=== PATIENT | male | born 1955 | race American Indian/Alaskan Native ===

== ENCOUNTER 2020-06-27 12:04 | Observation (INO) | payer OTHER ==
--- NOTE | 2020-06-27 12:33 | Emergency Department Report ---
ED Neuro Deficit HPI - General Chief Complaint: Neuro Symptoms/Deficit Stated Complaint: LT SIDE/FOOT FINGER/NUMB Time Seen by Provider: 06/27/20 12:28 Source: patient Mode of arrival: Ambulatory Limitations: No Limitations - History of Present Illness Initial Comments: 64-year-old male, history of hypertension, presents to ED for evaluation. Patient states last night around 8 or 9 PM, he experienced numbness and some weakness to his left arm and leg. Patient states EMS was called, but he declined transport to the ER due to concerns for Covid. Patient states his symptoms resolved last night. However, he decided to follow-up with his PCP this morning, who recommended that patient come to the ER for evaluation. Patient denies any current numbness or weakness in his extremities, denies any facial droop, denies any trouble with speech. Patient states his only symptoms this morning has been some slight dizziness. -: Last night Location: left arm, left leg Place: home Severity: mild Quality: weak, numb, other (Resolved) Improves With: none Worsens With: none On Anticoagulants: No Associated Symptoms: denies: chest pain, fever/chills, headaches, nausea/vomiting, shortness of breath Treatments Prior to Arrival: none - Related Data Allergies/Adverse Reactions: Allergies Allergy/AdvReac Type Severity Reaction Status Date / Time No Known Allergies Allergy Unverified 06/27/20 12:11 ED Review of Systems ROS: Stated complaint: LT SIDE/FOOT FINGER/NUMB Other details as noted in HPI Comment: All other systems reviewed and negative Constitutional: denies: fever Respiratory: denies: shortness of breath Cardiovascular: denies: chest pain Gastrointestinal: denies: vomiting Neurological: weakness, numbness, vertigo. denies: headache ED Past Medical Hx - Past Medical History Previous Medical History?: Yes Hx Hypertension: Yes Additional medical history: Glaucoma. BPH - Surgical History Past Surgical History?: No ED Neuro Physical Exam - General Limitations: No Limitations General appearance: alert, in no apparent distress Suspected Stroke: No - Head Head exam: Present: atraumatic, normocephalic - Eye Eye exam: Present: normal appearance, EOMI - ENT ENT exam: Present: mucous membranes moist - Neck Neck exam: Present: normal inspection - Respiratory Respiratory exam: Present: normal lung sounds bilaterally. Absent: respiratory distress - Cardiovascular Cardiovascular Exam: Present: regular rate, normal rhythm - GI/Abdominal GI/Abdominal exam: Present: soft. Absent: distended, tenderness - Extremities Exam Extremities exam: Present: normal inspection - Neurological Exam Neurological exam: Present: alert, oriented X3 - NIHSS Assessment Interval: Baseline 1a. Level of Consciousness: alert/keenly responsive 1b. LOC Questions: answers both correctly 1c. LOC Commands: performs tasks correctly 2. Best Gaze: normal 3. Visual: no visual loss 4. Facial Palsy: normal symmetrical movement 5b. Motor Arm Right: no drift 5a. Motor Arm Left: no drift 6a. Motor Leg Left: no drift 6b. Motor Leg Right: no drift 7. Limb Ataxia: absent 8. Sensory: normal 9. Best Language: no aphasia 10. Dysarthria: normal 11. Extinction/Inattention: no abnormality Total Score: 0 Stroke Severity: No Stroke Symptoms - Psychiatric Psychiatric exam: Present: normal affect, normal mood - Skin Skin exam: Present: warm, dry, intact, normal color ED Course Vital Signs 06/27/20 06/27/20 06/27/20 12:25 12:30 13:00 Temperature 97.8 F Pulse Rate 62 Respiratory 18 Rate Blood Pressure 159/83 159/83 139/77 Blood Pressure 159/83 [Left] O2 Sat by Pulse 98 100 Oximetry 06/27/20 06/27/20 06/27/20 13:30 14:08 14:30 Temperature Pulse Rate 60 59 L 57 L Respiratory 18 12 18 Rate Blood Pressure 135/85 149/98 149/98 Blood Pressure [Left] O2 Sat by Pulse 98 100 99 Oximetry 06/27/20 15:21 Temperature Pulse Rate Respiratory Rate Blood Pressure 149/98 Blood Pressure [Left] O2 Sat by Pulse 100 Oximetry - Lab Data Result diagrams: 06/27/20 12:44 06/27/20 12:44 Lab Results 06/27/20 06/27/20 06/27/20 Range/Units 12:44 12:44 12:44 WBC 6.3 (4.5-11.0) K/mm3 RBC 4.76 (3.65-5.03) M/mm3 Hgb 13.3 (11.8-15.2) gm/dl Hct 40.6 (35.5-45.6) % MCV 85 (84-94) fl MCH 28 (28-32) pg MCHC 33 (32-34) % RDW 12.6 L (13.2-15.2) % Plt Count 279 (140-440) K/mm3 Lymph % (Auto) 38.1 H (13.4-35.0) % [place] % (Auto) 8.5 H (0.0-7.3) % Eos % (Auto) 2.4 (0.0-4.3) % Baso % (Auto) 0.5 (0.0-1.8) % Lymph # (Auto) 2.4 (1.2-5.4) K/mm3 [place] # (Auto) 0.5 (0.0-0.8) K/mm3 Eos # (Auto) 0.2 (0.0-0.4) K/mm3 Baso # (Auto) 0.0 (0.0-0.1) K/mm3 Seg Neutrophils % 50.5 (40.0-70.0) % Seg Neutrophils # 3.2 (1.8-7.7) K/mm3 PT 13.3 (12.2-14.9) Sec. INR 0.99 (0.87-1.13) APTT 28.6 (24.2-36.6) Sec. Thrombin Time 16.5 (15.1-19.6) Sec. Sodium 138 (137-145) mmol/L Potassium 4.2 (3.6-5.0) mmol/L Chloride 100.8 (98-107) mmol/L Carbon Dioxide 23 (22-30) mmol/L Anion Gap 18 mmol/L BUN 14 (9-20) mg/dL Creatinine 1.1 (0.8-1.3) mg/dL Estimated GFR > 60 ml/min BUN/Creatinine Ratio 13 % Glucose 139 H (75-100) mg/dL Calcium 9.4 (8.4-10.2) mg/dL Total Bilirubin 0.30 (0.1-1.2) mg/dL AST 18 (5-40) units/L ALT 29 (7-56) units/L Alkaline Phosphatase 50 (35-129) units/L Troponin T < 0.010 (0.00-0.029) ng/mL Total Protein 7.2 (6.3-8.2) g/dL Albumin 4.4 (3.9-5) g/dL Albumin/Globulin Ratio 1.6 % - Radiology Data Radiology results: report reviewed, image reviewed - Medical Decision Making 64-year-old male presents to ED with TIA. Patient reports left-sided numbness and weakness last night, which lasted for approximately 5 minutes. Patient decided not to come to the emergency room at that time. Patient instead try to follow-up with his PCP this morning, however upon arriving to the office he was advised to come to the ER for evaluation. Patient reports his left-sided symptoms have resolved, only reports some mild dizziness. Patient was seen and evaluated by the teleneurologist. NIH is 0. CT head, CTA brain and neck were all negative for any acute bleed or large vessel occlusion. Patient has been given aspirin here in the ED. He will be admitted by hospitalist, Dr Quintero, for further management. - Differential Diagnosis TIA, CVA Critical care attestation.: If time is entered above; I have spent that time in minutes in the direct care of this critically ill patient, excluding procedure time. ED Disposition Clinical Impression: TIA (transient ischemic attack) Disposition: OP ADMIT IP TO THIS HOSP Is pt being admited?: Yes Condition: Stable Time of Disposition: 14:49
[2020-06-27 12:59] LABS: Basophils % (Auto) 0.5 % (0.0-1.8); Eosinophils # (Auto) 0.2 K/mm3 (0.0-0.4); Eosinophils % (Auto) 2.4 % (0.0-4.3); Hematocrit 40.6 % (35.5-45.6); Hemoglobin 13.3 gm/dl (11.8-15.2); Lymphocytes # (Auto) 2.4 K/mm3 (1.2-5.4); Lymphocytes % (Auto) 38.1 % (13.4-35.0); Mean Corpuscular HGB Conc 33 % (32-34); Mean Corpuscular Volume 85 fl (84-94); Monocytes # (Auto) 0.5 K/mm3 (0.0-0.8); Monocytes % (Auto) 8.5 % (0.0-7.3); Platelet Count 279 K/mm3 (140-440); Red Blood Count 4.76 M/mm3 (3.65-5.03); Red Cell Distribution Width 12.6 % (13.2-15.2)
[2020-06-27 13:12] LABS: INR 0.99 (0.87-1.13)
[2020-06-27 13:13] LABS: Partial Thromboplastin Time 28.6 Sec. (24.2-36.6); Thrombin Time 16.5 Sec. (15.1-19.6)
[2020-06-27 13:23] LABS: Alanine Aminotransferase 29 units/L (7-56); Albumin 4.4 g/dL (3.9-5); BUN/Creatinine Ratio 13; Blood Urea Nitrogen 14 mg/dL (9-20); Calcium 9.4 mg/dL (8.4-10.2); Hemolysis Index 12
--- NOTE | 2020-06-27 13:31 | Emergency Department Report ---
ED Neuro Deficit HPI - General Chief Complaint: Neuro Symptoms/Deficit Stated Complaint: LT SIDE/FOOT FINGER/NUMB Time Seen by Provider: 06/27/20 12:28 Source: patient Mode of arrival: Ambulatory Limitations: No Limitations - History of Present Illness Initial Comments: [facility] Consult Services Stat Consult Date of Service: 06/27/2020 12:30:53 Impression: Transient Ischemic Attack Comments/Sign-Out: Patient is a 64 yo RH male with a PMH of HTN, BPH, glaucoma who p/w an episode of left sided weakness and numbness last night. Episode occurred at 20:00, while sitting, lasting for 5 minutes. CUrrent NIHSS of 0. CTH pending. Given density of deficits at onset would proceed with STAT CTA head and neck to exclude critical stenosis. CT HEAD: Not Reviewed Pending Metrics: [employer] Notification Time: 06/27/2020 12:29:21 Stamp Time: 06/27/2020 12:30:53 Callback Response Time: 06/27/2020 12:34:43 Video Start Time: 06/27/2020 13:15:32 Our recommendations are outlined below. Recommendations: Initiate Aspirin 81 MG Daily ASA 325mg in ED, once CTH resulted Imaging Studies: MRI Head Without Contrast Echocardiogram - Transthoracic Echocardiogram Therapies: Physical Therapy, Occupational Therapy, Speech Therapy Assessment When Applicable Other WorkUp: Infectious/metabolic workup per primary team Disposition: Neurology Follow Up Recommended Sign Out: Discussed with Emergency Department Provider Chief Complaint: Possible stroke History of Present Illness: Patient is a 64 year old Male. Patient is a 64 yo RH male with a PMH of HTN, BPH, glaucoma who p/w an episode of left sided weakness and numbness last night. Episode occurred at 20:00, while sitting, lasting for 5 minutes. He describes a severe weakness, stiffness and numbness. No associated vision or speech changes. He was unable to stand. No h/o stroke or TIA. He did call EMS at the time. Upon their arrival his symptoms had resolved. He was told his systolic BP was in the 170s. He was weary of coming to the ED due to COVID and opted instead to se his PCP this AM, who referred him to the ED. He denies fever, SOB or other COVID symptoms. Past Medical History: Hypertension There is NO history of Stroke Anticoagulant use: No Antiplatelet use: No Examination: BP(135/85), Pulse(56), Blood Glucose(Pending) 1A: Level of Consciousness - Alert; keenly responsive + 0 1B: Ask Month and Age - Both Questions Right + 0 1C: Blink Eyes & Squeeze Hands - Performs Both Tasks + 0 2: Test Horizontal Extraocular Movements - Normal + 0 3: Test Visual Donis - No Visual Loss + 0 4: Test Facial Palsy (Use Grimace if Obtunded) - Normal symmetry + 0 5A: Test Left Arm Motor Drift - No Drift for 10 Seconds + 0 5B: Test Right Arm Motor Drift - No Drift for 10 Seconds + 0 6A: Test Left Leg Motor Drift - No Drift for 5 Seconds + 0 6B: Test Right Leg Motor Drift - No Drift for 5 Seconds + 0 7: Test Limb Ataxia (FNF/Heel-Escobar) - No Ataxia + 0 8: Test Sensation - Normal; No sensory loss + 0 9: Test Language/Aphasia - Normal; No aphasia + 0 10: Test Dysarthria - Normal + 0 11: Test Extinction/Inattention - No abnormality + 0 NIHSS Score: 0 Due to the immediate potential for life-threatening deterioration due to underlying acute neurologic illness, I spent 20 minutes providing critical care. This time includes time for face to face visit via telemedicine, review of medical records, imaging studies and discussion of findings with providers, the patient and/or family. Dr Meghan Ramirez [employer] Case [id number] Location: left arm, left leg Place: home Severity: mild Quality: weak, numb, other (Resolved) Improves With: none Worsens With: none On Anticoagulants: No Treatments Prior to Arrival: none - Related Data Allergies/Adverse Reactions: Allergies Allergy/AdvReac Type Severity Reaction Status Date / Time No Known Allergies Allergy Unverified 06/27/20 12:11 ED Review of Systems ROS: Stated complaint: LT SIDE/FOOT FINGER/NUMB Other details as noted in HPI Constitutional: denies: fever Respiratory: denies: shortness of breath Cardiovascular: denies: chest pain Gastrointestinal: denies: vomiting Neurological: weakness, numbness, vertigo. denies: headache ED Past Medical Hx - Past Medical History Previous Medical History?: Yes Hx Hypertension: Yes Additional medical history: Glaucoma. BPH - Surgical History Past Surgical History?: No - Social History Smoking Status: Never Smoker Substance Use Type: None ED Neuro Physical Exam - General Limitations: No Limitations General appearance: alert, in no apparent distress Suspected Stroke: Yes - NIHSS Assessment Interval: Baseline 1a. Level of Consciousness: alert/keenly responsive 1b. LOC Questions: answers both correctly 1c. LOC Commands: performs tasks correctly 2. Best Gaze: normal 3. Visual: no visual loss 4. Facial Palsy: normal symmetrical movement 5b. Motor Arm Right: no drift 5a. Motor Arm Left: no drift 6a. Motor Leg Left: no drift 6b. Motor Leg Right: no drift 7. Limb Ataxia: absent 8. Sensory: normal 9. Best Language: no aphasia 10. Dysarthria: normal 11. Extinction/Inattention: no abnormality Total Score: 0 Stroke Severity: No Stroke Symptoms ED Course Vital Signs 06/27/20 12:30 Temperature 97.8 F Pulse Rate 62 Respiratory 18 Rate Blood Pressure 159/83 [Left] O2 Sat by Pulse 98 Oximetry - Lab Data Result diagrams: 06/27/20 12:44 06/27/20 12:44 Lab Results 06/27/20 06/27/20 06/27/20 Range/Units 12:44 12:44 12:44 WBC 6.3 (4.5-11.0) K/mm3 RBC 4.76 (3.65-5.03) M/mm3 Hgb 13.3 (11.8-15.2) gm/dl Hct 40.6 (35.5-45.6) % MCV 85 (84-94) fl MCH 28 (28-32) pg MCHC 33 (32-34) % RDW 12.6 L (13.2-15.2) % Plt Count 279 (140-440) K/mm3 Lymph % (Auto) 38.1 H (13.4-35.0) % [place] % (Auto) 8.5 H (0.0-7.3) % Eos % (Auto) 2.4 (0.0-4.3) % Baso % (Auto) 0.5 (0.0-1.8) % Lymph # (Auto) 2.4 (1.2-5.4) K/mm3 [place] # (Auto) 0.5 (0.0-0.8) K/mm3 Eos # (Auto) 0.2 (0.0-0.4) K/mm3 Baso # (Auto) 0.0 (0.0-0.1) K/mm3 Seg Neutrophils % 50.5 (40.0-70.0) % Seg Neutrophils # 3.2 (1.8-7.7) K/mm3 PT 13.3 (12.2-14.9) Sec. INR 0.99 (0.87-1.13) APTT 28.6 (24.2-36.6) Sec. Thrombin Time 16.5 (15.1-19.6) Sec. Estimated GFR > 60 ml/min BUN/Creatinine Ratio 13 % Troponin T < 0.010 (0.00-0.029) ng/mL Albumin/Globulin Ratio 1.6 % Critical care attestation.: If time is entered above; I have spent that time in minutes in the direct care of this critically ill patient, excluding procedure time. ED Disposition Clinical Impression: TIA (transient ischemic attack) Disposition: PAT REG,TRIAGED-NO MSE Is pt being admited?: Yes Condition: Stable
--- NOTE | 2020-06-27 14:18 | Cat Scan Report ---
CT head/brain wo con INDICATION: Dizziness, left-sided numbness. TECHNIQUE: Routine CT head without contrast. All CT scans at this location are performed using CT dos e reduction for ALARA by means of automated exposure control. COMPARISON: None. FINDINGS: BRAIN / INTRACRANIAL CONTENTS: No acute hemorrhage, mass effect, midline shift, or hydrocephalus. No appreciable acute large territorial or lacunar infarct. No chronic infarct or focal atrophy. Normal b rain volume and ventricular/sulcal size for age. ORBITS: No significant abnormality of visualized orbits. SINUSES / MASTOIDS: No significant abnormality of visualized sinuses and mastoid air cells. ADDITIONAL FINDINGS: None. IMPRESSION: 1. No acute intracranial abnormality. Signer Name: Joey Shannon MD Signed: 06/27/2020 2:13 PM Workstation Name: [id number]
--- NOTE | 2020-06-27 14:37 | Cat Scan Report ---
CTA HEAD AND NECK WITH CONTRAST HISTORY: Left-sided weakness and dizziness. COMPARISON: None. TECHNIQUE: All CT scans at this location are performed using CT dose reduction for ALARA by means of automated exposure control.. 3-D/MIP reformats postprocessed. Percentage stenosis is determined by d irect quantitative measurements of diseased internal carotid artery diameter compared with normal dis lynette internal carotid artery reference segments or by criteria similar to NASCET where applicable. CONTRAST: 100 ml of Omnipaque 350 FINDINGS: CT HEAD: BRAIN / INTRACRANIAL CONTENTS: No acute hemorrhage, mass effect, midline shift, or hydrocephalus. No appreciable acute large territorial or lacunar infarct. ORBITS: No significant abnormality of visualized orbits. SINUSES / MASTOIDS: No significant abnormality of visualized sinuses and mastoid air cells. CTA HEAD: Intracranial vertebral arteries: No significant abnormality. Basilar artery: No significant abnormality. Posterior cerebral arteries: No significant abnormality. Intracranial internal carotid arteries: There is mild atherosclerosis in the bilateral carotid siphon s without flow-limiting stenosis. Anterior cerebral arteries: No significant abnormality. Middle cerebral arteries: No significant abnormality. Dural venous sinuses:Not optimally opacified. No significant abnormality. CTA NECK: Aortic arch: There is 2 vessel branching pattern of the aortic arch (developmental variant). Cervical vertebral arteries: No significant abnormality. Common carotid arteries: No significant abnormality. Cervical internal carotid arteries: No significant abnormality. Additional findings: None. IMPRESSION: 1. No flow-limiting stenosis or large vessel occlusion in the cervical or intracranial arteries. Signer Name: Joey Shannon MD Signed: 06/27/2020 2:33 PM Workstation Name: [id number]
[2020-06-27] MEDS ORDERED: ASPIRIN 325 MG TAB PO ONE (14:48)
--- NOTE | 2020-06-27 15:03 | History and Physical Report ---
History of Present Illness Chief complaint: I felt weak History of present illness: 64 YO Male with HTN, BPH, Glaucoma presents to ED for evaluation. Patient states that he experienced a sudden onset of left arm and leg numbness and weakness that began around 2000 hrs. overnight. EMS was notified and upon arrival the patient states that symptoms had resolved and the patient declined transport. Patient awoke this morning with persistent symptoms and was seen by his primary care physician for evaluation. Patient was instructed by his primary care physician to seek further care at [facility]. Patient transported to [facility] via private vehicle for further care and evaluation of the aforementioned symptoms. Patient seen and evaluated in the emergency department. All lab and imaging studies reviewed. A code stroke was called upon arrival and the patient initiated on stroke protocol. Patient was found to be outside the therapeutic window for TPA. Patient placed in observation status and admitted to medical floor and initiated on stroke protocol. Patient treated with antiplatelet therapy. Teleneurology was consulted in the emergency department. Patient denies fever, chills, chest pain, palpitations, productive cough, skin rash, recent ill contacts, or known exposure to COVID-19. No prior admission for review. No medication listed at time of admission for reconciliation. Past History Past Medical History: hypertension, other (See HPI) Past Surgical History: No surgical history, Other (reviewed) Social history: , lives with family. denies: smoking, alcohol abuse, prescription drug abuse Family history: hypertension Medications and Allergies Allergies Allergy/AdvReac Type Severity Reaction Status Date / Time No Known Allergies Allergy Unverified 06/27/20 12:11 Review of Systems Constitutional: no weight loss, no weight gain, no fever, no chills, no sweats Ears, nose, mouth and throat: no ear pain, no ear discharge, no tinnitis, no nasal congestion, no nasal discharge, no sinus pressure Cardiovascular: no chest pain, no rapid/irregular heart beat, no edema, no syncope, no lightheadedness Respiratory: no cough, no cough with sputum, no shortness of breath Gastrointestinal: no abdominal pain, no nausea, no vomiting, no diarrhea, no constipation, no change in bowel habits Genitourinary Male: no hematuria, no flank pain, no discharge, no urinary f requency, no urinary hesitancy Rectal: no pain, no incontinence, no bleeding Musculoskeletal: no neck stiffness, no neck pain, no shooting arm pain, no low back pain, no shooting leg pain, no leg numbness/tingling Integumentary: no rash, no redness, no wounds, no jaundice, no boils Neurological: weakness, numbness, no tingling, no seizures, no syncope, no convulsions, no aphasia, no change in mentation, no confusion Psychiatric: no anxiety, no memory loss, no change in sleep habits, no sleep disturbances, no insomnia, no hypersomnia, no change in appetite, no change in libido, no suicidal ideation Endocrine: no cold intolerance, no heat intolerance, no polyphagia, no excessive thirst, no polydipsia, no nocturia Hematologic/Lymphatic: no easy bruising, no easy bleeding, no lymphedema Allergic/Immunologic: no urticaria, no allergic rhinitis, no wheezing, no persistent infections Exam - Constitutional Vitals: Temp Pulse Resp BP Pulse Ox 97.8 F 62 18 159/83 98 06/27/20 12:30 06/27/20 12:30 06/27/20 12:30 06/27/20 12:30 06/27/20 12:30 General appearance: Present: mild distress - EENT Eyes: Present: PERRL ENT: hearing intact, clear oral mucosa - Neck Neck: Present: supple, normal ROM - Respiratory Respiratory effort: normal Respiratory: bilateral: CTA - Cardiovascular Heart Sounds: Present: S1 & S2. Absent: rub, click - Extremities Extremities: pulses symmetrical, No edema Peripheral Pulses: within normal limits - Abdominal General gastrointestinal: Present: soft, non-tender, non-distended, normal bowel sounds Male genitourinary: Present: normal - Integumentary Integumentary: Present: clear, warm, dry - Musculoskeletal Musculoskeletal: gait normal, strength equal bilaterally - Psychiatric Psychiatric: appropriate mood/affect, intact judgment & insight - Neurologic Neurologic: CNII-XII intact, moves all extremities HEART Score - HEART Score Troponin: Troponin T < 0.010 ng/mL (0.00-0.029) 06/27/20 12:44 Results - Labs CBC & Chem 7: 06/27/20 12:44 06/27/20 12:44 Labs: Abnormal lab results 06/27/20 06/27/20 Range/Units 12:44 12:44 RDW 12.6 L (13.2-15.2) % Lymph % (Auto) 38.1 H (13.4-35.0) % [place] % (Auto) 8.5 H (0.0-7.3) % Glucose 139 H (75-100) mg/dL Assessment and Plan - Patient Problems (1) CVA (cerebral vascular accident) Current Visit: Yes Status: Acute (2) Hypertension Current Visit: Yes Status: Acute Plan to address problem: CVA protocol: CT head, neuro check, seizure precaution, aspiration precautions, physical therapy, Occupational Therapy, speech therapy, lipid panel, statin therapy, antiplatelet therapy, teleneurology consulted in ED. (3) BPH (benign prostatic hyperplasia) Current Visit: Yes Status: Acute Qualifiers: Lower urinary tract symptom presence: symptoms absent Qualified Code(s): N40.0 - Benign prostatic hyperplasia without lower urinary tract symptoms Plan to address problem: Supportive care, outpatient urology follow-up (4) Advance care planning Current Visit: Yes Status: Acute Plan to address problem: Disease education conducted, patient is full code, prognosis discussed, patient care plan discussed, patient knowledges understanding and agreement with care plan +30 minutes (5) DVT prophylaxis Current Visit: Yes Status: Acute Plan to address problem: SCD to bilateral lower extremities while in bed, patient is ambulatory
[2020-06-27] MEDS ORDERED: ACETAMINOPHEN 325 MG TAB PO PRN (15:04)
[2020-06-27] MEDS ORDERED: MAGNESIUM HYDROXIDE (MOM) ORAL LIQD UDC PO PRN (15:04)
[2020-06-27] MEDS ORDERED: METOCLOPRAMIDE 10 MG TAB PO PRN (15:04)
[2020-06-27] MEDS ORDERED: PROMETHAZINE 25 MG RECT SUPP PR PRN (15:04)
[2020-06-27] MEDS ORDERED: ONDANSETRON 4 MG/2 ML INJ IV PRN (15:04)
[2020-06-27] MEDS ORDERED: ASPIRIN 325 MG TAB ONE (16:09)
--- NOTE | 2020-06-27 16:52 | Vascular Lab Report ---
CLINICAL DATA: stroke TECHNICAL DATA: Imaging was performed from the base of the neck to the skull base using duplex sonography and color-f low imaging with emphasis on the carotid and vertebral arterial systems. RIGHT CAROTID ARTERY: The right internal carotid artery, right external carotid, and right common carotid artery all well i tiffany and patent. Mild atherosclerotic plaque present at the carotid bifurcation. Right common carotid artery peak systolic velocity 102 cm/sec Right internal carotid artery peak systolic velocity 102 cm/sec Right internal carotid artery end diastolic velocity 44cm/sec Right internal carotid artery/right common carotid artery ratio 1.0 Vertebral artery flow is antegrade. LEFT CAROTID ARTERY The left internal carotid artery, left external carotid, and left common carotid artery all well imag ed and patent. Mild atherosclerotic plaque present at the carotid bifurcation. Left common carotid artery peak systolic velocity 101 cm/sec Left internal carotid artery peak systolic velocity 74 cm/sec Left internal carotid artery end diastolic velocity 34 cm/sec Left internal carotid artery/right common carotid artery ratio 0.75 Normal antegrade flow of the vertebral arteries. Please see worksheet for all velocities. IMPRESSION: 1. Sonographic NASCET Index This study proposed the incorporation of distal ICA flow velocity information on the conventional car otid Doppler study improving the diagnostic accuracy of PSV 1. Right and left internal carotid arteries demonstrate <15% stenosis: deceleration spectral broadening with a peak systolic velocity (PSV) <125 cm/s 2. Less than 50% stenosis common carotid arteries. 3. Less than 50% stenosis external carotid arteries. 4. Antegrade flow both vertebral arteries. * Signer Name: Anthony Bass MD Signed: 06/27/2020 4:47 PM Workstation Name: [id number]
[2020-06-27 21:56] LABS: Bilirubin,Urine NEG (Negative); Blood,Urine SM (Negative); Color,Urine Straw (Yellow); Mucus,Urine FEW /HPF; Protein,Urine <15 mg/dL mg/dL (Negative); Urobilinogen,Urine < 2.0 mg/dL (<2.0)
--- NOTE | 2020-06-28 07:50 | Progress Note ---
Assessment and Plan Assessment and plan: --Possible acute CVA; With left-sided weakness Evaluated by telemetry neurologist, not a candidate for TPA -CT head without contrast; no acute abnormality noted -CTA neck; negative for occlusion or stenosis -CTA head; negative for occlusion or stenosis -Carotid Doppler; no hemodynamically significant stenosis/less than 50% stenosis -Echo; pending Continue aspirin and statin Neuro consult for further evaluation and management Physical therapy. Occupational Therapy. Rehabilitation --Hypertension; moderate control Permissive hypertension per stroke protocol Closely monitor --Dyslipidemia; follow lipid panel Lipitor 40 mg p.o. nightly Low-cholesterol diet --History of BPH; Follow urology as outpatient for further evaluation And management --DVT prophylaxis;Lovenox --Full CODE STATUS; We will closely monitor the patient and adjust management as needed Follow neurology evaluation and recommendations Follow-up pending neuro work-up Hospitalist Physical - Constitutional Vitals: Temp Pulse Resp BP Pulse Ox 98.6 F 71 18 124/70 98 06/28/20 04:43 06/28/20 04:43 06/28/20 04:43 06/28/20 04:43 06/28/20 04:43 General appearance: Present: mild distress HEART Score - HEART Score Troponin: Troponin T < 0.010 ng/mL (0.00-0.029) 06/27/20 12:44 Results - Labs CBC & Chem 7: 06/27/20 12:44 06/27/20 12:44 Labs: Laboratory Last Values WBC 6.3 K/mm3 (4.5-11.0) 06/27/20 12:44 RBC 4.76 M/mm3 (3.65-5.03) 06/27/20 12:44 Hgb 13.3 gm/dl (11.8-15.2) 06/27/20 12:44 Hct 40.6 % (35.5-45.6) 06/27/20 12:44 MCV 85 fl (84-94) 06/27/20 12:44 MCH 28 pg (28-32) 06/27/20 12:44 MCHC 33 % (32-34) 06/27/20 12:44 RDW 12.6 % (13.2-15.2) L 06/27/20 12:44 Plt Count 279 K/mm3 (140-440) 06/27/20 12:44 Lymph % (Auto) 38.1 % (13.4-35.0) H 06/27/20 12:44 [place] % (Auto) 8.5 % (0.0-7.3) H 06/27/20 12:44 Eos % (Auto) 2.4 % (0.0-4.3) 06/27/20 12:44 Baso % (Auto) 0.5 % (0.0-1.8) 06/27/20 12:44 Lymph # (Auto) 2.4 K/mm3 (1.2-5.4) 06/27/20 12:44 [place] # (Auto) 0.5 K/mm3 (0.0-0.8) 06/27/20 12:44 Eos # (Auto) 0.2 K/mm3 (0.0-0.4) 06/27/20 12:44 Baso # (Auto) 0.0 K/mm3 (0.0-0.1) 06/27/20 12:44 Seg Neutrophils % 50.5 % (40.0-70.0) 06/27/20 12:44 Seg Neutrophils # 3.2 K/mm3 (1.8-7.7) 06/27/20 12:44 PT 13.3 Sec. (12.2-14.9) 06/27/20 12:44 INR 0.99 (0.87-1.13) 06/27/20 12:44 APTT 28.6 Sec. (24.2-36.6) 06/27/20 12:44 Thrombin Time 16.5 Sec. (15.1-19.6) 06/27/20 12:44 Sodium 138 mmol/L (137-145) 06/27/20 12:44 Potassium 4.2 mmol/L (3.6-5.0) 06/27/20 12:44 Chloride 100.8 mmol/L (98-107) 06/27/20 12:44 Carbon Dioxide 23 mmol/L (22-30) 06/27/20 12:44 Anion Gap 18 mmol/L 06/27/20 12:44 BUN 14 mg/dL (9-20) 06/27/20 12:44 Creatinine 1.1 mg/dL (0.8-1.3) 06/27/20 12:44 Estimated GFR > 60 ml/min 06/27/20 12:44 BUN/Creatinine Ratio 13 % 06/27/20 12:44 Glucose 139 mg/dL (75-100) H 06/27/20 12:44 Calcium 9.4 mg/dL (8.4-10.2) 06/27/20 12:44 Total Bilirubin 0.30 mg/dL (0.1-1.2) 06/27/20 12:44 AST 18 units/L (5-40) 06/27/20 12:44 ALT 29 units/L (7-56) 06/27/20 12:44 Alkaline Phosphatase 50 units/L (35-129) 06/27/20 12:44 Troponin T < 0.010 ng/mL (0.00-0.029) 06/27/20 12:44 Total Protein 7.2 g/dL (6.3-8.2) 06/27/20 12:44 Albumin 4.4 g/dL (3.9-5) 06/27/20 12:44 Albumin/Globulin Ratio 1.6 % 06/27/20 12:44 Urine Color Straw (Yellow) 06/27/20 21:32 Urine Turbidity Clear (Clear) 06/27/20 21:32 Urine pH 6.0 (5.0-7.0) 06/27/20 21:32 Ur Specific [place] 1.024 (1.003-1.030) 06/27/20 21:32 Urine Protein <15 mg/dl mg/dL (Negative) 06/27/20 21:32 Urine Glucose (UA) Neg mg/dL (Negative) 06/27/20 21:32 Urine Ketones Neg mg/dL (Negative) 06/27/20 21:32 Urine Blood Sm (Negative) 06/27/20 21:32 Urine Nitrite Neg (Negative) 06/27/20 21: Urine Bilirubin Neg (Negative) 06/27/20 21: Urine Urobilinogen < 2.0 mg/dL (<2.0) 06/27/20 21:32 Ur Leukocyte Esterase Neg (Negative) 06/27/20 21:32 Urine WBC (Auto) 1.0 /HPF (0.0-6.0) 06/27/20 21:32 Urine RBC (Auto) 1.0 /HPF (0.0-6.0) 06/27/20 21:32 U Epithel Cells (Auto) 1.0 /HPF (0-13.0) 06/27/20 21:32 Urine Mucus Few /HPF 06/27/20 21:32 Jenkins/IV: Voiding Method Toilet IV Catheter Type [Right INT / [place] Lock Antecubital] Active Medications - Current Medications Current Medications: Generic Name Dose Route Start Last Admin Trade Name Freq PRN Reason Stop Dose Admin Acetaminophen 650 mg 06/27/20 15:04 Tylenol PO Q4H PRN Pain, Mild (1-3) Aspirin 325 mg 06/28/20 10:00 Aspirin PO QDAY MICHAEL Atorvastatin Calcium 40 mg 06/27/20 22:00 06/27/20 21:38 Lipitor PO 40 mg QHS MICHAEL Administration Bisacodyl 10 mg 06/27/20 15:04 Dulcolax MN QDAY PRN Constipation Magnesium Hydroxide 30 ml 06/27/20 15:04 Milk Of Magnesia PO Q4H PRN Constipation Metoclopramide HCl 10 mg 06/27/20 15:04 Reglan PO Q6H PRN Nausea And Vomiting Ondansetron HCl 4 mg 06/27/20 15:04 Zofran IV Q8H PRN Nausea And Vomiting Pneumococcal Polyvalent Vaccine 0.5 ml 06/28/20 12:00 Pneumovax 23 IM 06/28/20 12:01 .ONCE ONE Promethazine HCl 25 mg 06/27/20 15:04 Phenergan MN Q6H PRN Nausea And Vomiting Sodium Chloride 10 ml 06/27/20 15:04 Sodium Chloride Flush Syringe 10 Ml IV PRN PRN LINE FLUSH
[2020-06-28] MEDS ORDERED: LORazepam 2 MG/ML VIAL IV NR (08:00)
[2020-06-28 09:58] LABS: Chol/HDL Ratio 4.24 %
[2020-06-28] MEDS ORDERED: ASPIRIN 325 MG TAB PO SCH (10:00)
--- NOTE | 2020-06-28 11:44 | Magnetic Resonance Report ---
MRI BRAIN 06/28/2020 INDICATION / CLINICAL INFORMATION: MAIN. TECHNIQUE: Multiplanar, multisequence MR images of the brain were obtained. COMPARISON: CT brain 06/27/2020 FINDINGS: BRAIN / INTRACRANIAL CONTENTS: Unenhanced MR images of the brain demonstrate no evidence of acute int racranial abnormality. Ventricles and sulci are normal in size and shape. There is no evidence of acute ischemic injury, hemorrhage, or mass. There are no abnormal extra-axial fluid collections. EXTRACRANIAL: Unremarkable CRANIOCERVICAL JUNCTION: No significant abnormality. VASCULAR FLOW-VOIDS: No significant abnormality. IMPRESSION: No acute abnormality. Negative unenhanced MRI of the brain. Signer Name: Mayo Pandey MD Signed: 06/28/2020 11:39 AM Workstation Name: [id number]
[2020-06-28] MEDS ORDERED: PNEUMOCOCCAL 23 Valent 0.5 ML VIAL IM ONE (12:00)
[2020-06-28] MEDS ORDERED: LOSARTAN 50 MG TAB PO SCH (13:00)
[2020-06-28] MEDS ORDERED: FINASTERIDE 5 MG TAB PO SCH (13:00)
[2020-06-28 13:04] VITALS: BP 125/78
[2020-06-28] MEDS ORDERED: TIMOLOL 0.5% OPHTH SOLN 5 ML OU SCH (14:00)
--- NOTE | 2020-06-28 14:02 | Discharge Summary ---
Providers - Providers Date of Admission: 06/27/20 15:04 Date of discharge: 06/28/20 Attending physician: HAO BENSON 06/27/20 15:04 Occupational Therapy Evaluate and Treat [CONS] Routine Comment: Reason For Exam: Neuro deficits Physical Therapy Evaluation and Treat [CONS] Routine Comment: Reason For Exam: Neuro deficits Speech Therapy Evaluation and Treat [CONS] Routine Reason For Exam: swallow eval 06/28/20 07:38 Consult to Physician [CONS] Routine Comment: Consulting Provider: JOSE OZUNA Physician Instructions: Reason For Exam: Possible CVA Primary care physician: JAVA TECHNICAL MANAGER Hospitalization Reason for admission: Left-sided weakness and numbness Condition: Stable Pertinent studies: --Possible acute CVA; With left-sided weakness Evaluated by telemetry neurologist, not a candidate for TPA -CT head without contrast; no acute abnormality noted -CTA neck; negative for occlusion or stenosis -CTA head; negative for occlusion or stenosis -Carotid Doppler; no hemodynamically significant stenosis/less than 50% stenosis -Echo; pending EF 55 to 60%, no shunt -MRI brain; no acute abnormality Hospital course: Very pleasant 64 YO Male patient with significant past medical history of HTN, BPH, Glaucoma was admitted through emergency room with history of a sudden onset of left arm and leg numbness and weakness that began around 2000 hrs. overnight. upon arrival of the EMS ,the patient states that symptoms had resolved and the patient declined transport. Patient awoke this morning with persistent symptoms and was seen by his primary care physician for evaluation. Patient was instructed by his primary care physician to seek further care at [facility]. Patient was initially evaluated by ER physician as well as telemetry neurologist, not a candidate for TPA, CT head without contrast no acute abnormality, admitted to the hospital, darted on aspirin and statin and had extensive neuro work-up which was negative as mentioned above, patient symptoms completely resolved, PT has evaluated the patient no deficits Today he is comfortable no new complaints vital signs stable Denies any weakness or numbness in any part of the body, speech clear Ambulatory and tolerating oral nutrition Hemodynamically and clinically stable at discharge Discharge diagnosis; --Possible acute CVA; acute CVA ruled out With left-sided weakness present on admission/completely resolved Evaluated by telemetry neurologist, not a candidate for TPA -CT head without contrast; no acute abnormality noted -CTA neck; negative for occlusion or stenosis -CTA head; negative for occlusion or stenosis -Carotid Doppler; no hemodynamically significant stenosis/less than 50% stenosis -Echo; EF 55 to 60%, no shunt -MRI; no acute abnormality Continue aspirin and statin Physical therapy. No deficits no needs. --Possible TIA; Aspirin and statin Follow-up neurology upon discharge For further evaluation as needed --Hypertension; moderate control Permissive hypertension per stroke protocol Closely monitor --Dyslipidemia; follow lipid panel Lipitor 40 mg p.o. nightly Low-cholesterol diet --History of BPH; Follow urology as outpatient for further evaluation And management --DVT prophylaxis;Lovenox --Full CODE STATUS; We will closely monitor the patient and adjust management as needed Follow neurology evaluation and recommendations Follow-up pending neuro work-up Disposition: DC- TO HOME OR SELFCARE Time spent for discharge: 32 min Core Measure Documentation - Palliative Care Palliative Care/ Comfort Measures: Not Applicable - Core Measures Any of the following diagnoses?: none Exam - Constitutional Vitals: Temp Pulse Resp BP Pulse Ox 98.6 F 61 18 125/78 98 06/28/20 04:43 06/28/20 13:04 06/28/20 04:43 06/28/20 13:04 06/28/20 10:00 General appearance: Present: no acute distress, well-nourished - EENT Eyes: Present: PERRL, EOM intact - Neck Neck: Present: supple, normal ROM - Respiratory Respiratory effort: normal Respiratory: negative: diminished, rales, rhonchi, wheezing - Cardiovascular Rhythm: regular Heart Sounds: Present: S1 & S2 - Extremities Extremities: no ischemia, No edema - Abdominal General gastrointestinal: Present: soft, non-tender, non-distended, normal bowel sounds - Integumentary Integumentary: Present: clear, warm - Musculoskeletal Musculoskeletal: strength equal bilaterally - Psychiatric Psychiatric: appropriate mood/affect, cooperative - Neurologic Neurologic: CNII-XII intact, moves all extremities Plan Activity: no restrictions Diet: other (cardiac diet) Additional Instructions: If you have worsening symptoms contact MD or go to emergency room. Advised to see private neurologist for further evaluation and management if needed Follow up with: PRIMARY CAREMD [Primary Care Provider] - 3-5 Days GINETTE MCGINNIS MD [Staff Physician] - 7 Days Prescriptions: Aspirin EC [Ecotrin] 325 mg PO QDAY #30 tablet. AtorvaSTATin [Lipitor] 40 mg PO QHS #30 tablet
[2020-06-28] MEDS ORDERED: ENOXAPARIN 40 MG/0.4 ML INJ SUB-Q SCH (22:00)
[2020-06-29] MEDS ORDERED: EPA PO SCH (10:00)
[2020-06-29] MEDS ORDERED: DHA PO SCH (10:00)
[2020-06-29] MEDS ORDERED: OMEGA-3 FATTY ACIDS/FISH OIL 1 GRAM CAP PO SCH (10:00)
[2020-06-29] MEDS ORDERED: OMEGA PO SCH (10:00)
[2020-06-29] MEDS ORDERED: FISH OIL PO SCH (10:00)
== END 2020-06-28 14:55 | disposition home or self-care (01) ==
LOC: ED 12:04 → 3A 15:04
PROVIDERS: ADMIT Internal Medicine; ATTEND Internal Medicine
DX: I63.9 Cerebral infarction, unspecified (principal); I10 Essential (primary) hypertension; N40.0 Benign prostatic hyperplasia without lower urinary tract symptoms; H40.9 Unspecified glaucoma; R29.700 NIHSS score 0; Z79.82 Long term (current) use of aspirin; Z23 Encounter for immunization; Z79.899 Other long term (current) drug therapy
CPT/HCPCS: 36415; 70450; 70496; 70498; 70551; 80053; 80061; 81001; 84484; 85025; 85610; 85670; 85730; 90732; 92610; 93005; 93306; 93880; 97161; 99285; A9270; G0009; G0378; Q9967; 90471